=== PATIENT | female | born 1970 | race Caucasian/White ===

== ENCOUNTER → 2016-09-19 | Outpatient (CLI) | payer OTHER ==
--- NOTE | 2016-09-19 14:06 | US ---
Ultrasound Left Breast History: Palpable abnormality in left breast upper-outer quadrant. Comparison: Prior mammograms most recent from today. Technique: Ultrasound imaging of the upper-outer quadrant of the left breast from the 12 to the 3 o'c lock position was performed by the lab technician and me. Findings: No ultrasound evidence of dominant solid or cystic lesion in the left breast upper-outer qu adrant. No suspicious findings on mammography or ultrasound. Impression: 1. BI-RADS 1: Negative ultrasound of the left breast. 2. No ultrasound evidence of dominant solid or cystic lesion in the left breast upper-outer quadrant. 3. Recommend continued clinical monitoring and treatment based on clinical suspicion. 4. Recommend annual mammograms with next annual screening mammogram September 2017. Findings and recommendations have been discussed with the patient who agrees with the plan.
--- NOTE | 2016-09-19 14:23 | MA ---
Bilateral Diagnostic Digital Mammogram with iCAD Clinical Indications: Palpable abnormality upper outer left breast. Technique: Digital bilateral CC and MLO, additional left breast spot compression spot CC and true lat eral views. [facility]. Comparison: 2014, 2013, 2007. Breast Density: C, 50-75%. Findings: Both breasts demonstrate no new dominant densities, suspicious clustered microcalcification s or architectural distortion. In the upper outer quadrant left breast, there are no suspicious findi ngs. Impression: 1. Negative bilateral mammogram. 2. ACR BI-RADS 0: Needs further imaging. Recommendation: Ultrasound of the upper outer quadrant of the left breast which will be subsequently performed. Please see ultrasound report and recommendations. [facility] will send a result letter to the patient.
== END ==
LOC: CIMAGING 12:45
PROVIDERS: ATTEND Physician Assistant Medical
DX: Z12.39 Encounter for other screening for malignant neoplasm of breast (principal); N63 Unspecified lump in breast
CPT/HCPCS: 76641-PO; G0204

== ENCOUNTER → 2018-01-11 | Outpatient (CLI) | payer OTHER | LOC: CIMAGING 15:04 | PROVIDERS: ATTEND Internal Medicine | DX: Z12.31 Encounter for screening mammogram for malignant neoplasm of breast (principal) ==